=== PATIENT | male | born 1985 | race Caucasian/White ===

== ENCOUNTER 2017-08-21 11:15 | Day surgery (SDC) | payer BC ==
[~2017-08-21 11:15] MED LIST: Acetaminophen/HYDROcodone 325-5 MG Tab PO PRN; Ketorolac 30 MG/ML SDV ONE; Lactated Ringers 1,000 ML IV SCH; Lidocaine 1% 20 ML MDV ONE; Lidocaine 2% 5 ML SDV ONE; Midazolam 1 MG/ML 2 ML SDV ONE; Ondansetron 4 MG/2 ML SDV ONE; Propofol 200 MG/20 ML SDV ONE; ceFAZolin 2 GM in Premix Bag 1 BAG IV SCH; fentaNYL 250 MCG/5 ML SDV ONE
[2017-08-21] MEDS ORDERED: Propofol 200 MG/20 ML SDV ONE (12:13)
[2017-08-21] MEDS ORDERED: Lidocaine 2% 5 ML SDV ONE (12:13)
--- NOTE | 2017-08-21 12:44 | PCM.PREANE ---
Preanesthetic Assessment - Anesthesia/Transfusion/Family Hx Anesthesia History: Prior Anesthesia Without Reaction (wisdom tooth extraction) Family History of Anesthesia Reaction: No - Review of Systems General: No Symptoms Pulmonary: No Symptoms Cardiovascular: No Symptoms Gastrointestinal: No Symptoms Neurological: No Symptoms Other: Reports: None - Physical Assessment NPO Status Date: 08/20/17 NPO Status Time: 00:00 O2 Sat by Pulse Oximetry: 95 Respiratory Rate: 16 Vital Signs: Last Vital Signs Temp 36.4 C 08/21/17 11:30 Pulse 69 08/21/17 11:30 Resp 16 08/21/17 11:30 BP 144/87 H 08/21/17 11:30 Pulse Ox 95 08/21/17 11:30 Height: 1.83 m Weight: 172.365 kg ASA Class: 3 Mental Status: Alert & Oriented x3 Airway Class: Mallampati = 2 Dentition: Reports: Normal Dentition ROM/Head Extension: Full Lungs: Clear to Auscultation, Normal Respiratory Effort Cardiovascular: Regular Rate, Regular Rhythm - Allergies Allergies/Adverse Reactions: Allergies Allergy/AdvReac Type Severity Reaction Status Date / Time No Known Allergies Allergy Verified 08/19/17 11:14 - Anesthesia Plan Pre-Op Medication Ordered: None - Acknowledgements Anesthesia Type Planned: General Anesthesia Pt an Appropriate Candidate for the Planned Anesthesia: Yes Alternatives and Risks of Anesthesia Discussed w Pt/Guardian: Yes Pt/Guardian Understands and Agrees with Anesthesia Plan: Yes Additional Comments: PMH: super morbid obesity, GERD, new dx of HTN (has one day of amlodipine since dx at pre op H&P)) PreAnesthesia Questionnaire Respiratory History: Reports: Asthma, Sleep Apnea Other Respiratory History: uses CPAP Musculoskeletal History: Reports: Fracture Other Musculoskeletal History: hx of fx right wrist x3 Endocrine/Metabolic History: Reports: Obesity/BMI 30+ - Past Surgical History HEENT Surgical History: Reports: Oral Surgery Other HEENT Surgeries/Procedures: wisdom teeth removed - SUBSTANCE USE Smoking Status *Q: Current Every Day Smoker Tobacco Use Within Last Twelve Months: Smokeless Tobacco Recreational Drug Use History: No - HOME MEDS Home Medications: Home Meds Albuterol Sulfate [Proair Hfa] 1 puff INH ASDIRECTED PRN 08/19/17 [History] Montelukast Sodium [Singulair] 10 mg PO DAILY 12/04/17 [History] - CURRENT (IN HOUSE) MEDS Current Meds: Current Medications Hydrocodone Bitart/Acetaminophen ([place] 325-5 Mg) 1 - 2 tab PO Q4H PRN PRN Reason: Pain Cefazolin Sodium/Dextrose 2 gm (/ Premix) 50 mls @ 100 mls/hr IV ONCALL [facility] Lactated Ringer's (Ringers, Lactated) 1,000 mls @ 100 mls/hr IV ASDIRECTED [facility] Last Admin: 08/21/17 11:31 Dose: 100 mls/hr Discontinued Medications Fentanyl (Sublimaze) Confirm Administered Dose 250 mcg .ROUTE .STK-MED ONE Stop: 08/21/17 09:53 Ketorolac Tromethamine (Toradol) Confirm Administered Dose 30 mg .ROUTE .STK- MED ONE Stop: 08/21/17 09:54 Lidocaine (Xylocaine-Mpf 2%) Confirm Administered Dose 10 ml .ROUTE .STK-MED ONE Stop: 08/21/17 09:52 Lidocaine (Xylocaine-Mpf 2%) Confirm Administered Dose 5 ml .ROUTE .STK-MED ONE Stop: 08/21/17 12:14 Lidocaine HCl (Xylocaine 1%) Confirm Administered Dose 20 ml .ROUTE .STK-MED ONE Stop: 08/21/17 07:30 Midazolam HCl (Versed 1 Mg/Ml) Confirm Administered Dose 2 mg .ROUTE .STK-MED ONE Stop: 08/21/17 09:53 Ondansetron HCl (Zofran) Confirm Administered Dose 4 mg .ROUTE .STK-MED ONE Stop: 08/21/17 09:54 Propofol (Diprivan 20 Ml) Confirm Administered Dose 400 mg .ROUTE .STK-MED ONE Stop: 08/21/17 09:53 Propofol (Diprivan 20 Ml) Confirm Administered Dose 200 mg .ROUTE .STK-MED ONE Stop: 08/21/17 12:14
[2017-08-21] MEDS ORDERED: fentaNYL 100 MCG/2 ML SDV ONE (13:25)
[2017-08-21] MEDS ORDERED: fentaNYL 100 MCG/2 ML SDV IVPUSH PRN (13:33)
--- NOTE | 2017-08-21 13:55 | PCM.OPNOTE ---
- General Post-Op/Procedure Note Date of Surgery/Procedure: 08/21/17 Operative Procedure(s): Right knee arthroscopy with chondroplasty of med fem condyle and PLM Post-Op Diagnosis: DJD R knee. R knee lateral meniscus tear. R knee ACL tear Anesthesia Technique: General LMA Primary Surgeon: Tri Price Orange Picking Supervisor: Shaniqua Razo in mLs: 5 Condition: Good Free Text/Narrative:: tt=21min #[id number]
--- NOTE | 2017-08-21 15:31 | PCM.POSTAN ---
POST ANESTHESIA ASSESSMENT - MENTAL STATUS Mental Status: Alert, Oriented - RESPIRATORY Respiratory Status: Respiratory Rate WNL, Airway Patent, O2 Saturation Stable - CARDIOVASCULAR CV Status: Pulse Rate WNL, Blood Pressure Stable - GASTROINTESTINAL GI Status: No Symptoms - POST OP HYDRATION Hydration Status: Adequate & Stable
--- NOTE | 2017-08-21 15:32 | PCM48HPAN ---
Post Anesthesia Note - EVALUATION WITHIN 48HRS OF ANESTHETIC Vital Signs in Normal Range: Yes Patient Participated in Evaluation: Yes Respiratory Function Stable: Yes Airway Patent: Yes Cardiovascular Function Stable: Yes Hydration Status Stable: Yes Pain Control Satisfactory: Yes Nausea and Vomiting Control Satisfactory: Yes Mental Status Recovered: Yes
--- NOTE | 2017-08-21 18:47 | OR ---
SURGEON: Tri Price MD DATE OF PROCEDURE: 08/21/2017 PREOPERATIVE DIAGNOSES: 1. Right knee ACL tear. 2. Right knee lateral meniscus tear. POSTOPERATIVE DIAGNOSES: 1. Right knee ACL tear. 2. Right knee lateral meniscus tear. 3. Degenerative joint disease, right knee. PROCEDURE: Right knee arthroscopy with chondroplasty of the medial femoral condyle and partial lateral meniscectomy. CONSULTANT TEACHER: Shaniqua Razo PA-C. ANESTHESIA: General. ESTIMATED BLOOD LOSS: 5 mL. TOURNIQUET TIME: 21 minute. COMPLICATIONS: None. DVT PROPHYLAXIS: Not indicated. IMPLANTS USED: None. BRIEF HISTORY: Charlie is a 32-year-old male, who has had complaint of progressive right knee pain. He did have an MRI, which showed a tear of the ACL along with a complex tear of the lateral meniscus. Due to his lack of response to conservative treatment, I did recommend surgical intervention. The risks and goals of procedure were discussed with the patient and were documented preoperatively. He agreed to proceed. DESCRIPTION OF PROCEDURE: The patient was properly identified and brought to the operating room. He was transferred from the OR cart and placed on the operating table in supine position. General anesthesia was administered. After adequate anesthesia was obtained, a well-padded tourniquet was applied to the right lower extremity. The right lower extremity was then prepped in standard fashion using ChloraPrep solution. It was then sterilely draped. A time-out was performed to ensure correct site and procedure. Preoperative antibiotics were given. The surgical site had been marked preoperatively. An Esmarch was used to exsanguinate the right lower extremity and the tourniquet was inflated to 250 mmHg. A lateral portal arthrotomy was established. Blunt trocar and cannula were introduced into the suprapatellar pouch. Camera, inflow, and outflow were assembled. The suprapatellar pouch showed no significant synovitis. The patellofemoral joint was visualized. There was found to be evidence of grade 2 chondromalacia along the superolateral aspect of the patella. The trochlear groove showed no significant degenerative findings. The patella appeared to track centrally. I then extended down the lateral and medial gutter. No loose bodies were identified. The medial compartment was entered. A medial portal arthrotomy was established. A blunt probe was inserted. The meniscus was extensively probed. No tearing was noted. The chondral surfaces were then inspected. There was evidence of grade 2 chondromalacia diffusely along the medial tibial plateau. The medial femoral condyle was visualized. He did have a flap of cartilage along the lateral aspect of the medial femoral condyle which appeared loose. A 4.5 mm shaver was used to resect this back to a stable remnant. It was again probed and no further loosening was noted. It did not appear to be full thickness and was consistent with grade 3 chondromalacia. I then entered the notch. Both the ACL and PCL were visualized. The ACL appeared to be scarred to the PCL. It had no attachment to the lateral femoral condyle. There did not appear to be any loose fibers impinging within the joint. I then entered the lateral compartment. A large complex tear of the posterior horn of the lateral meniscus was noted. Using a combination of biters and shaver, this was resected back to a stable remnant. Only a thin rim of meniscus remained along the posterior aspect of the meniscus. The joint surfaces showed diffuse grade 3 chondromalacia along the lateral tibial plateau. Grade 1 chondromalacia was noted along the lateral femoral condyle. Instruments were then removed from the knee. The portal sites were closed with 3-0 nylon. Lidocaine 1% was injected along the portal tract. Xeroform gauze was placed over the wound and a bulky dressing was applied. The tourniquet was then deflated. He was awakened from his anesthetic and transferred back to the operating room cart. He was brought to recovery room in stable condition. All needle and sponge counts were correct. NATHAN / LIV /[id number]
== END 2017-08-21 15:35 | disposition home or self-care (01) ==
LOC: MW.SDS 11:15
PROVIDERS: ATTEND Orthopaedic Surgery
DX: S83.271A Complex tear of lateral meniscus, current injury, right knee, initial encounter (principal); S83.511A Sprain of anterior cruciate ligament of right knee, initial encounter; M17.11 Unilateral primary osteoarthritis, right knee; M22.41 Chondromalacia patellae, right knee; K21.9 Gastro-esophageal reflux disease without esophagitis; I10 Essential (primary) hypertension; G47.30 Sleep apnea, unspecified; E66.01 Morbid (severe) obesity due to excess calories; Z68.43 Body mass index [BMI] 50.0-59.9, adult; Z79.899 Other long term (current) drug therapy; Z98.890 Other specified postprocedural states; Z99.89 Dependence on other enabling machines and devices
CPT/HCPCS: 29881; A9270; J0690; J1885; J2250; J2405; J3010; J7120; 01400; 88304; J2704

== ENCOUNTER 2018-11-17 21:13 | Emergency (ER) | payer BC ==
--- NOTE | 2018-11-17 21:19 | EDM.PDOC ---
ED HPI GENERAL MEDICAL PROBLEM - General Stated Complaint: PT HAS BODY PAIN ON LT SIDE Time Seen by Provider: 11/17/18 21:19 Source of Information: Reports: Patient - History of Present Illness INITIAL COMMENTS - FREE TEXT/NARRATIVE: HISTORY AND PHYSICAL: History of present illness: [Patient presents with a complaint of chest pain for 2 weeks does also complain of some left shoulder pain both chest and shoulder pain or worsened by movement of the left arm I can reproduce symptoms with palpation over the insertion of the pectoralis major consistent with muscle spasm no shortness of breath or diaphoresis no radiation to neck or jaw Nausea vomiting chills sweats no shortness breath headache dizziness palpitation no bowel or urine symptoms ] Review of systems: As per history of present illness and below otherwise all systems reviewed and negative. Past medical history: As per history of present illness and as reviewed below otherwise noncontributory. Surgical history: As per history of present illness and as reviewed below otherwise noncontributory. Social history: No reported history of drug or alcohol abuse. Family history: As per history of present illness and as reviewed below otherwise noncontributory. Physical exam: HEENT: Atraumatic, normocephalic, pupils reactive, negative for conjunctival pallor or scleral icterus, mucous membranes moist, throat clear, neck supple, nontender, trachea midline. Lungs: Clear to auscultation, breath sounds equal bilaterally, chest nontender. Heart: S1S2, regular, negative for clicks, rubs, or JVD. Abdomen: Soft, nondistended, nontender. Negative for masses or hepatosplenomegaly. Negative for costovertebral tenderness. Pelvis: Stable nontender. Genitourinary: Deferred. Rectal: Deferred. Extremities: Atraumatic, negative for cords or calf pain. Neurovascular unremarkable. Neuro: Awake, alert, oriented. Cranial nerves II through XII unremarkable. Cerebellum unremarkable. Motor and sensory unremarkable throughout. Exam nonfocal. Diagnostics: [] Therapeutics: [Normal saline Vasotec 1.25 mg IV-discontinued his blood pressure improved Rest ice ibuprofen ] Impression: [Muscle spasm, left pectoral major insertion defintive disposition and diagnosis as appropriate pending reevaluation and review of above. chest Pain Score (Numeric/FACES): 2 - Related Data Allergies Allergy/AdvReac Type Severity Reaction Status Date / Time No Known Allergies Allergy Verified 08/19/17 11:14 Home Meds: Home Meds Albuterol Sulfate [Proair Hfa] 1 puff INH ASDIRECTED PRN 08/19/17 [History] Montelukast Sodium [Singulair] 10 mg PO DAILY 08/19/17 [History] Acetaminophen/HYDROcodone [[place] 325-5 MG] 1 - 2 tab PO Q4H PRN #80 tablet 08/21 [Rx] Past Medical History Respiratory History: Reports: Asthma, Sleep Apnea Other Respiratory History: uses CPAP Musculoskeletal History: Reports: Fracture Other Musculoskeletal History: hx of fx right wrist x3 Endocrine/Metabolic History: Reports: Obesity/BMI 30+ - Past Surgical History HEENT Surgical History: Reports: Oral Surgery Other HEENT Surgeries/Procedures: wisdom teeth removed ED ROS GENERAL - Review of Systems Review Of Systems: See Below ED EXAM, GENERAL - Physical Exam Exam: See Below Course - Vital Signs Last Recorded V/S: Last Vital Signs Temp 98.1 F 11/17/18 21:35 Pulse 69 11/17/18 22:22 Resp 20 11/17/18 22:22 BP 146/77 H 11/17/18 22:22 Pulse Ox 99 11/17/18 22:22 - Orders/Labs/Meds Orders: Active Orders 24 hr Category Date Time Status EKG Documentation Completion [RC] STAT Care 11/17/18 21:21 Active CULTURE BLOOD [BC] Stat Lab 11/17/18 21:52 Results CULTURE BLOOD [BC] Stat Lab 11/17/18 22:20 Received Blood Culture x2 Reflex Set [OM.PC] Stat Oth 11/17/18 21:20 Ordered Labs: Laboratory Tests 11/17/18 11/17/18 11/17/18 Range/Units 22:20 22:20 22:20 WBC 6.11 (4.0-11.0) K/uL RBC 5.27 (4.50-5.90) M/uL Hgb 15.8 (13.0-17.0) g/dL Hct 46.2 (38.0-50.0) % MCV 87.7 (80.0-98.0) fL MCH 30.0 (27.0-32.0) pg MCHC 34.2 (31.0-37.0) g/dL RDW Std Deviation 43.4 (28.0-62.0) fl RDW Coeff of [place] 14 (11.0-15.0) % Plt Count 237 (150-400) K/uL MPV 10.40 (7.40-12.00) fL Neut % (Auto) 53.9 (48.0-80.0) % Lymph % (Auto) 33.9 (16.0-40.0) % [place] % (Auto) 9.5 (0.0-15.0) % Eos % (Auto) 2.0 (0.0-7.0) % Baso % (Auto) 0.7 (0.0-1.5) % Neut # (Auto) 3.3 (1.4-5.7) K/uL Lymph # (Auto) 2.1 (0.6-2.4) K/uL [place] # (Auto) 0.6 (0.0-0.8) K/uL Eos # (Auto) 0.1 (0.0-0.7) K/uL Baso # (Auto) 0.0 (0.0-0.1) K/uL Nucleated RBC % 0.0 /100WBC Nucleated RBCs # 0 K/uL INR 1.02 D-Dimer, Quantitative (0.0-0.50) mg/L FEU Sodium 140 (136-148) mmol/L Potassium 3.8 (3.5-5.1) mmol/L Chloride 104 (98-107) mmol/L Carbon Dioxide 28.1 (21.0-32.0) mmol/L BUN 20 H (7.0-18.0) mg/dL Creatinine 1.1 (0.8-1.3) mg/dL Est Cr Clr Drug Dosing TNP Estimated GFR (MDRD) > 60.0 ml/min Glucose 93 (74-106) mg/dL Calcium 9.4 (8.5-10.1) mg/dL Total Bilirubin 0.2 (0.2-1.0) mg/dL AST 26 (15-37) IU/L ALT 52 (14-63) IU/L Alkaline Phosphatase 70 (46-116) U/L Troponin I < 0.050 (0.000-0.056) ng/mL Total Protein 7.6 (6.4-8.2) g/dL Albumin 3.9 (3.4-5.0) g/dL Globulin 3.7 (2.6-4.0) g/dL Albumin/Globulin Ratio 1.1 (0.9-1.6) Lipase 114 (73-393) U/L Urine Color Urine Appearance Urine pH (5.0-8.0) Ur Specific [place] (1.001-1.035) Urine Protein (NEGATIVE) mg/dL Urine Glucose (UA) (NEGATIVE) mg/dL Urine Ketones (NEGATIVE) mg/dL Urine Occult Blood (NEGATIVE) Urine Nitrite (NEGATIVE) Urine Bilirubin (NEGATIVE) Urine Urobilinogen (<2.0) EU/dL Ur Leukocyte Esterase (NEGATIVE) 11/17/18 11/17/18 Range/Units 22:20 22:53 WBC (4.0-11.0) K/uL RBC (4.50-5.90) M/uL Hgb (13.0-17.0) g/dL Hct (38.0-50.0) % MCV (80.0-98.0) fL MCH (27.0-32.0) pg MCHC (31.0-37.0) g/dL RDW Std Deviation (28.0-62.0) fl RDW Coeff of [place] (11.0-15.0) % Plt Count (150-400) K/uL MPV (7.40-12.00) fL Neut % (Auto) (48.0-80.0) % Lymph % (Auto) (16.0-40.0) % [place] % (Auto) (0.0-15.0) % Eos % (Auto) (0.0-7.0) % Baso % (Auto) (0.0-1.5) % Neut # (Auto) (1.4-5.7) K/uL Lymph # (Auto) (0.6-2.4) K/uL [place] # (Auto) (0.0-0.8) K/uL Eos # (Auto) (0.0-0.7) K/uL Baso # (Auto) (0.0-0.1) K/uL Nucleated RBC % /100WBC Nucleated RBCs # K/uL INR D-Dimer, Quantitative 0.32 (0.0-0.50) mg/L FEU Sodium (136-148) mmol/L Potassium (3.5-5.1) mmol/L Chloride (98-107) mmol/L Carbon Dioxide (21.0-32.0) mmol/L BUN (7.0-18.0) mg/dL Creatinine (0.8-1.3) mg/dL Est Cr Clr Drug Dosing Estimated GFR (MDRD) ml/min Glucose (74-106) mg/dL Calcium (8.5-10.1) mg/dL Total Bilirubin (0.2-1.0) mg/dL AST (15-37) IU/L ALT (14-63) IU/L Alkaline Phosphatase (46-116) U/L Troponin I (0.000-0.056) ng/mL Total Protein (6.4-8.2) g/dL Albumin (3.4-5.0) g/dL Globulin (2.6-4.0) g/dL Albumin/Globulin Ratio (0.9-1.6) Lipase (73-393) U/L Urine Color YELLOW Urine Appearance CLOUDY Urine pH 7.0 (5.0-8.0) Ur Specific [place] 1.010 (1.001-1.035) Urine Protein NEGATIVE (NEGATIVE) mg/dL Urine Glucose (UA) NEGATIVE (NEGATIVE) mg/dL Urine Ketones NEGATIVE (NEGATIVE) mg/dL Urine Occult Blood NEGATIVE (NEGATIVE) Urine Nitrite NEGATIVE (NEGATIVE) Urine Bilirubin NEGATIVE (NEGATIVE) Urine Urobilinogen 1.0 (<2.0) EU/dL Ur Leukocyte Esterase NEGATIVE (NEGATIVE) Meds: Medications Discontinued Medications Generic Name Dose Route Start Last Admin Trade Name [place] PRN Reason Stop Dose Admin Enalaprilat 1.25 mg 11/17/18 22:00 11/17/18 22:51 Vasotec Iv IVPUSH 11/17/18 22:01 Not Given ONETIME ONE Sodium Chloride 1,000 mls @ 999 mls/hr 11/17/18 21:22 11/17/18 21:58 Normal Saline IV 11/17/18 22:22 999 mls/hr STAT ONE Administration Pantoprazole Sodium 80 mg 11/17/18 21:22 11/17/18 21:58 Protonix Iv IVPUSH 11/17/18 21:23 80 mg .BOLUS ONE Administration Departure - Departure Time of Disposition: 23:22 Disposition: Home, Self-Care 01 Condition: Good Clinical Impression: Muscle spasm - Discharge Information Referrals: Charlie Bush MD [Primary Care Provider] - Additional Instructions: The following information is given to patients seen in the emergency department who are being discharged to home. This information is to outline your options for follow-up care. We provide all patients seen in our emergency department with a follow-up referral. The need for follow-up, as well as the timing and circumstances, are variable depending upon the specifics of your emergency department visit. If you don't have a primary care physician on staff, we will provide you with a referral. We always advise you to contact your personal physician following an emergency department visit to inform them of the circumstance of the visit and for follow-up with them and/or the need for any referrals to a consulting specialist. The emergency department will also refer you to a specialist when appropriate. This referral assures that you have the opportunity for follow-up care with a specialist. All of these measure are taken in an effort to provide you with optimal care, which includes your follow-up. Under all circumstances we always encourage you to contact your private physician who remains a resource for coordinating your care. When calling for follow-up care, please make the office aware that this follow-up is from your recent emergency room visit. If for any reason you are refused follow-up, please contact the [facility] emergency department at and asked to speak to the emergency department charge nurse. - My Orders Last 24 Hours: My Active Orders 11/17/18 21:20 Blood Culture x2 Reflex Set [OM.PC] Stat 11/17/18 21:21 EKG Documentation Completion [RC] STAT 11/17/18 21:52 CULTURE BLOOD [BC] Stat 11/17/18 22:20 CULTURE BLOOD [BC] Stat - Assessment/Plan Last 24 Hours: My Active Orders 11/17/18 21:20 Blood Culture x2 Reflex Set [OM.PC] Stat 11/17/18 21:21 EKG Documentation Completion [RC] STAT 11/17/18 21:52 CULTURE BLOOD [BC] Stat 11/17/18 22:20 CULTURE BLOOD [BC] Stat
[2018-11-17] MEDS ORDERED: Pantoprazole 40 MG Vial IVPUSH ONE (21:22)
[2018-11-17] MEDS ORDERED: Sodium Chloride 0.9% 1,000 ML IV ONE (21:22)
[2018-11-17] MEDS ORDERED: Enalaprilat 1.25 MG/ML SDV IVPUSH ONE (22:00)
--- NOTE | 2018-11-17 22:01 | CR ---
Indication: Left-sided chest pain Technique: Chest 1 view Comparison: None Findings/Impression: Prominent cardiac size. Normal pulmonary vasculature. No focal infiltrate, effusion, or pneumothorax. Osseous structures intact. Dictated by Vidhya Sanders MD @ Nov 17 2018 10:00PM Signed by Dr. Vidhya Sanders @ Nov 17 2018 10:00PM
[2018-11-17 23:12] LABS: CHLORIDE,CL 104 mmol/L (98-107); SODIUM,NA 140 mmol/L (136-148)
== END 2018-11-17 23:36 | disposition home or self-care (01) ==
LOC: MW.ED 21:13
DX: M62.838 Other muscle spasm (principal)
CPT/HCPCS: 36415; 71045; 80053; 81003; 83690; 84484; 85025; 85379; 85610; 87040; 93005; 96361; 96374; 99285; C9113; J7040; 99283

== ENCOUNTER 2019-05-25 12:35 | Observation (INO) | payer BC ==
--- NOTE | 2019-05-25 12:46 | EDM.PDOC ---
ED HPI GENERAL MEDICAL PROBLEM - General Chief Complaint: Lower Extremity Injury/Pain Stated Complaint: RIGHT SWOLLEN LEG Time Seen by Provider: 05/25/19 12:46 Source of Information: Reports: Patient History Limitations: Reports: No Limitations - History of Present Illness INITIAL COMMENTS - FREE TEXT/NARRATIVE: HISTORY AND PHYSICAL: History of present illness: Patient is a 34-year-old male who presents to the emergency room with complaints of right lower extremity pain, swelling and redness. He states last week he had cold like symptoms and had been laying in bed for several days. During that time he had fever, chills and generalized body aches. A few days ago he had noticed a small sore to his right iglesias which she states has "been there a long time". He noticed some redness and swelling around the site. He did use a tele-doc service who prescribed him oral antibiotics. He states he has been taking these oral antibiotics for 2 days but the right lower extremity has become more painful, red and tender with palpation. He states with rest and not being physically active the pain is better. Patient denies any headache, change in vision, syncope or near syncope. Denies any chest pain, back pain, shortness of breath or cough. Denies any GI or symptoms. Patient has been eating and drinking appropriately. Denies any previous history of diabetes. Review of systems: As per history of present illness and below otherwise all systems reviewed and negative. Past medical history: As per history of present illness and as reviewed below otherwise noncontributory. Surgical history: As per history of present illness and as reviewed below otherwise noncontributory. Social history: See social history for further information Family history: As per history of present illness and as reviewed below otherwise noncontributory. Physical exam: General: Well-developed and well-nourished 34-year-old male. Alert and oriented. Nontoxic appearing and in no acute distress. HEENT: Atraumatic, normocephalic, pupils equal and reactive bilaterally, negative for conjunctival pallor or scleral icterus, mucous membranes moist, trachea midline. No drooling or trismus noted. No meningeal signs. No hot potato voice noted. Lungs: Clear to auscultation, breath sounds equal bilaterally, chest nontender. Heart: S1S2, regular rate and rhythm without overt murmur Abdomen: Soft, obese, nontender. Negative for masses or hepatosplenomegaly. Negative for costovertebral tenderness. Pelvis: Stable nontender. Skin: Diffuse erythema noted to the right anterior lower extremity. warm to touch.He does have a healing scab to the mid right tib-fib. Otherwise skin is intact, warm, dry. No lesions or rashes noted. Extremities: Atraumatic, moves all extremities per self without difficulty or deficits, see skin for details. Patient is ambulatory without difficulty or deficits. Denies any numbness or tingling to the distal extremities. Palpable pedal pulse. Patient does have large body habitus with generalized edema to bilateral lower extremities. Capillary refill less than 3 seconds. Neurovascular unremarkable. Neuro: Awake, alert, oriented. Cranial nerves II through XII unremarkable. Cerebellum unremarkable. Motor and sensory unremarkable throughout. Exam nonfocal. Notes: Doppler was used to confirm pedal and pretibial pulses. Calf Measurements: 21. 75 inches on (R) and 20.5 inches on (L) Patient failed outpatient therapy. Lab work is unremarkable. vtc technician and states that the ultrasound is negative for DVT. Dr. Vazquez was consult did on this case and he is agreeable to keeping this patient for observation admission. Vancomycin was ordered. Patient was made aware and agreeable to plan of care. Diagnostics: CBC, CMP, INR, blood cultures, x-ray right lower extremity, ultrasound Therapeutics: Vancomycin Impression: Cellulitis Plan: Observation admission per Dr. Vazquez. Definitive disposition and diagnosis as appropriate pending reevaluation and review of above. Right Lower Leg Pain Score (Numeric/FACES): 3 - Related Data Allergies Allergy/AdvReac Type Severity Reaction Status Date / Time grass pollen Allergy Mild Sneezing Verified 05/25/19 15:15 Home Meds: Home Meds Albuterol Sulfate [Proair Hfa] 1 puff INH ASDIRECTED PRN 08/19/17 [History] Montelukast Sodium [Singulair] 10 mg PO BEDTIME 08/19/17 [History] Losartan [Cozaar] 25 mg PO BEDTIME 05/25/19 [History] Past Medical History Cardiovascular History: Reports: Hypertension Respiratory History: Reports: Asthma, Sleep Apnea Other Respiratory History: uses CPAP Gastrointestinal History: Reports: None Genitourinary History: Reports: None Musculoskeletal History: Reports: Fracture Other Musculoskeletal History: hx of fx right wrist x3 Psychiatric History: Reports: None Endocrine/Metabolic History: Reports: Obesity/BMI 30+ - Infectious Disease History Infectious Disease History: Reports: None - Past Surgical History HEENT Surgical History: Reports: Oral Surgery Other HEENT Surgeries/Procedures: wisdom teeth removed Social & Family History - Family History Family Medical History: Noncontributory Review of Systems - Review of Systems Review Of Systems: ROS reveals no pertinent complaints other than HPI. ED EXAM, GENERAL - Physical Exam Exam: See Below (See dictation) Course - Vital Signs Last Recorded V/S: Last Vital Signs Temp 97.6 F 05/25/19 15:04 Pulse 83 05/25/19 15:04 Resp 16 05/25/19 15:04 BP 157/86 H 05/25/19 15:04 Pulse Ox 99 05/25/19 15:04 - Orders/Labs/Meds Orders: Active Orders 24 hr Category Date Time Status CULTURE BLOOD [BC] Stat Lab 05/25/19 13:10 Results CULTURE BLOOD [BC] Stat Lab 05/25/19 13:23 Results Blood Culture x2 Reflex Set [OM.PC] Stat Oth 05/25/19 12:53 Ordered Medication Orders Acetaminophen (Tylenol) 650 mg PO Q4H PRN PRN Reason: Pain (Mild 1-3)/fever Albuterol (Proventil Neb Soln) 2.5 mg NEB Q2H PRN PRN Reason: Shortness Of Breath/wheezing Albuterol (Proventil Hfa) 0 gm INH Q4H PRN PRN Reason: Wheezing Enoxaparin Sodium (Lovenox) 40 mg SUBCUT Q24H IZA Last Admin: 05/25/19 15:52 Dose: 40 mg Linezolid 600 mg/ Premix 300 mls @ 300 mls/hr IV Q12H IZA Last Admin: 05/25/19 15:53 Dose: 300 mls/hr Losartan Potassium (Cozaar) 25 mg PO BEDTIME IZA Montelukast Sodium (Singulair) 10 mg PO BEDTIME IZA Ondansetron HCl (Zofran) 4 mg IVPUSH Q4H PRN PRN Reason: Nausea Oxycodone HCl (Oxycodone) 5 mg PO Q4H PRN PRN Reason: Pain (moderate 4-6) Sodium Chloride (Saline Flush) 2.5 ml FLUSH ASDIRECTED PRN PRN Reason: Keep Vein Open Labs: Laboratory Tests 05/25/19 05/25/19 Range/Units 13:10 13:10 WBC 5.42 (4.0-11.0) K/uL RBC 5.24 (4.50-5.90) M/uL Hgb 15.2 (13.0-17.0) g/dL Hct 46.0 (38.0-50.0) % MCV 87.8 (80.0-98.0) fL MCH 29.0 (27.0-32.0) pg MCHC 33.0 (31.0-37.0) g/dL RDW Std Deviation 42.8 (28.0-62.0) fl RDW Coeff of Edenilson 13 (11.0-15.0) % Plt Count 219 (150-400) K/uL MPV 11.30 (7.40-12.00) fL Neut % (Auto) 58.8 (48.0-80.0) % Lymph % (Auto) 29.0 (16.0-40.0) % Spencer % (Auto) 9.8 (0.0-15.0) % Eos % (Auto) 1.5 (0.0-7.0) % Baso % (Auto) 0.9 (0.0-1.5) % Neut # (Auto) 3.2 (1.4-5.7) K/uL Lymph # (Auto) 1.6 (0.6-2.4) K/uL Spencer # (Auto) 0.5 (0.0-0.8) K/uL Eos # (Auto) 0.1 (0.0-0.7) K/uL Baso # (Auto) 0.1 (0.0-0.1) K/uL Nucleated RBC % 0.0 /100WBC Nucleated RBCs # 0 K/uL Sodium 139 (136-148) mmol/L Potassium 4.1 (3.5-5.1) mmol/L Chloride 103 (98-107) mmol/L Carbon Dioxide 22.1 (21.0-32.0) mmol/L BUN 14 (7.0-18.0) mg/dL Creatinine 0.9 (0.8-1.3) mg/dL Est Cr Clr Drug Dosing 124.54 mL/min Estimated GFR (MDRD) > 60.0 ml/min Glucose 87 (74-106) mg/dL Calcium 10.2 H (8.5-10.1) mg/dL Total Bilirubin 0.4 (0.2-1.0) mg/dL AST 20 (15-37) IU/L ALT 53 (14-63) IU/L Alkaline Phosphatase 65 (46-116) U/L Total Protein 7.0 (6.4-8.2) g/dL Albumin 3.3 L (3.4-5.0) g/dL Globulin 3.7 (2.6-4.0) g/dL Albumin/Globulin Ratio 0.9 (0.9-1.6) Meds: Medications Generic Name Dose Route Start Last Admin Trade Name Freq PRN Reason Stop Dose Admin Acetaminophen 650 mg 05/25/19 14:54 Tylenol PO Q4H PRN Pain (Mild 1-3)/fever Albuterol 2.5 mg 05/25/19 14:54 Proventil Neb Soln NEB Q2H PRN Shortness Of Breath/wheezing Albuterol 0 gm 05/25/19 15:01 Proventil Hfa INH Q4H PRN Wheezing Enoxaparin Sodium 40 mg 05/25/19 15:00 05/25/19 15:52 Lovenox SUBCUT 40 mg Q24H IZA Administration Linezolid 600 mg/ Premix 300 mls @ 300 mls/hr 05/25/19 15:00 05/25/19 15:53 IV 300 mls/hr Q12H IZA Administration Losartan Potassium 25 mg 05/25/19 21:00 Cozaar PO BEDTIME IZA Montelukast Sodium 10 mg 05/25/19 21:00 Singulair PO BEDTIME IZA Ondansetron HCl 4 mg 05/25/19 14:54 Zofran IVPUSH Q4H PRN Nausea Oxycodone HCl 5 mg 05/25/19 14:54 Oxycodone PO Q4H PRN Pain (moderate 4-6) Sodium Chloride 2.5 ml 05/25/19 14:54 Saline Flush FLUSH ASDIRECTED PRN Keep Vein Open Departure - Departure Time of Disposition: 14:06 Disposition: Refer to Observation Clinical Impression: Cellulitis Qualifiers: Site of cellulitis: extremity Site of cellulitis of extremity: lower extremity Laterality: right Qualified Code(s): L03.115 - Cellulitis of right lower limb - Discharge Information - My Orders Last 24 Hours: My Active Orders 05/25/19 12:53 Blood Culture x2 Reflex Set [OM.PC] Stat 05/25/19 13:10 CULTURE BLOOD [BC] Stat 05/25/19 13:23 CULTURE BLOOD [BC] Stat - Assessment/Plan Last 24 Hours: My Active Orders 05/25/19 12:53 Blood Culture x2 Reflex Set [OM.PC] Stat 05/25/19 13:10 CULTURE BLOOD [BC] Stat 05/25/19 13:23 CULTURE BLOOD [BC] Stat
--- NOTE | 2019-05-25 14:25 | CR ---
Right tibia and fibula: AP and lateral views of the right tibia and fibula were obtained. Increased density is noted within the subcutaneous fat most likely representing subcutaneous edema. Small spur is noted at the attachment of the Achilles tendon to the calcaneus. Slight joint space narrowing is seen within the lateral compartment of the knee with minimal lateral osteophytes. No acute fracture or other bony abnormality is seen. Impression: Findings as described above. Nothing acute is appreciated. Diagnostic code #2 MTDD
--- NOTE | 2019-05-25 14:26 | US ---
Right lower extremity deep venous ultrasound: Duplex and color Doppler evaluation was obtained of the right common femoral, superficial femoral, popliteal, posterior tibial vein. Findings: Subcutaneous edema is noted within the calf which obscures the posterior tibial vein. Other veins show normal phasic flow, augmentation and compression. Impression: 1. Posterior tibial vein is not seen due to subcutaneous edema within the calf. 2. No evidence of deep venous thrombosis is seen within the right lower extremity. Diagnostic code #2 MTDD
--- NOTE | 2019-05-25 14:49 | PCM.HP.2 ---
<Mary Lou Ward M - Last Filed: 05/25/19 15:18> H&P History of Present Illness - General Date of Service: 05/25/19 Admit Problem/Dx: Admission Diagnosis/Problem Admission Diagnosis/Problem Cellulitis of R lower extremity Source of Information: Patient History Limitations: Reports: No Limitations - History of Present Illness Initial Comments - Free Text/Narative: This 34 year old male with pmh od obesity, HTN, EMILEE and asthma presented to the ED today with worsening right lower leg redness, pain and swelling. He reports on Saturday he noticed very small amount of redness to his R iglesias. He reports he has had an abrasion there for months, that is itchy and it bleeds if she scratches it. Denies trauma or spider bite. No purulent drainage has ever come out of abrasion. He then reports being feverish, with body aches and overall not feeling well over the weekend. He saw a Dr via Telemedicine through his insurance and was prescribed Bactrim. He has taken this x 3 doses and the redness continues to worsen. he denies ever since starting Bactrim and generally is feeling a little better, but leg continues to worsen. He reports hx of HTN and asthma. No DM or known CAD. He reports chewing tobacco, rare alcohol use and no recreational drug use. In the ED CBC WNL, no leukocytosis noted. Doppler of R leg negative for DVT. Tib /fib exray shows no signs of gas, noted subcutaneous edema to lower extremity. VS stable in ED, mild hypertension noted. BC obtained and are pending. He will be admitted observation for RLE cellulitis. Right Lower Leg Pain Score (Numeric/FACES): 3 - Related Data Allergies/Adverse Reactions: Allergies Allergy/AdvReac Type Severity Reaction Status Date / Time grass pollen Allergy Mild Sneezing Verified 05/25/19 15:15 Home Medications: Home Meds Albuterol Sulfate [Proair Hfa] 1 puff INH ASDIRECTED PRN 08/19/17 [History] Montelukast Sodium [Singulair] 10 mg PO BEDTIME 08/19/17 [History] Losartan [Cozaar] 25 mg PO BEDTIME 05/25/19 [History] Past Medical History Cardiovascular History: Reports: Hypertension. Denies: Afib, Blood Clots/VTE/ DVT, CAD Respiratory History: Reports: Asthma, Sleep Apnea Other Respiratory History: uses CPAP Gastrointestinal History: Reports: None Genitourinary History: Reports: None Musculoskeletal History: Reports: Fracture Other Musculoskeletal History: hx of fx right wrist x3 Psychiatric History: Reports: None Endocrine/Metabolic History: Reports: Obesity/BMI 30+. Denies: Diabetes, Type II, Hypothyroidism Dermatologic History: Reports: None. Denies: Cellulitis - Infectious Disease History Infectious Disease History: Reports: None - Past Surgical History HEENT Surgical History: Reports: Oral Surgery Other HEENT Surgeries/Procedures: wisdom teeth removed Social & Family History - Family History Family Medical History: Noncontributory - Tobacco Use Smoking Status *Q: Never Smoker Tobacco Use Within Last Twelve Months: Smokeless Tobacco Packs/Tins Daily: 1 Smoking Cessation Information Provided To Patient: Yes Second Hand Smoke Exposure: No - Caffeine Use Caffeine Use: Reports: Coffee - Alcohol Use Alcohol Use History: No Alcohol Use Frequency: Rarely - Recreational Drug Use Recreational Drug Use: No H&P Review of Systems - Review of Systems: Review Of Systems: See Below General: Reports: Fever, Chills, Malaise, Decreased Appetite HEENT: Reports: No Symptoms. Denies: Headaches, Sinus Congestion, Sore Throat Pulmonary: Reports: No Symptoms. Denies: Shortness of Breath, Cough, Sputum Cardiovascular: Reports: Edema (RLE). Denies: Chest Pain, Dyspnea on Exertion Gastrointestinal: Reports: No Symptoms. Denies: Abdominal Pain, Black Stool, Bloody Stool, Nausea, Vomiting Genitourinary: Reports: No Symptoms. Denies: Dysuria, Frequency, Retention, Flank Pain Musculoskeletal: Reports: Leg Pain (R lower extremity). Denies: Neck Pain Skin: Reports: Erythema (RLE) Psychiatric: Reports: No Symptoms Neurological: Reports: No Symptoms Hematologic/Lymphatic: Reports: No Symptoms Immunologic: Reports: No Symptoms Exam - Exam Exam: See Below - Vital Signs Vital Signs: Last Vital Signs Temp 97.1 F 05/25/19 12:45 Pulse 81 05/25/19 14:14 Resp 18 05/25/19 14:14 BP 165/91 H 05/25/19 14:14 Pulse Ox 96 05/25/19 14:14 Weight: 176.901 kg - Exam General: Alert, Oriented, Cooperative HEENT: Conjunctiva Clear, Mucosa Moist & [place], Posterior Pharynx Clear Lungs: Clear to Auscultation, Normal Respiratory Effort Cardiovascular: Regular Rate, Regular Rhythm, Normal S1, Normal S2. No: Systolic Murmur GI/Abdominal Exam: Normal Bowel Sounds, Soft, Non-Tender, Other (obese abdomen) Back Exam: Normal Inspection, Full Range of Motion Extremities: Normal Inspection, Normal Range of Motion, Non-Tender, Normal Capillary Refill, Pedal Edema (+2 pitting to RLE) Peripheral Pulses: 2+: Posterior Tibial (L), Posterior Tibial (R), Dorsalis Pedis (L), Dorsalis Pedis (R) Skin: Wound (small 0.5 in round abrasion, healing wound with scab. No drainage or fluctuance. Erythema, warm and tenderness noted circumferentially to RLE, sparing knee and ankle and foot. Able to move all joints without pain. ) Neuro Extensive - Mental Status: Alert, Oriented x3, Normal Mood/Affect Neuro Extensive - Motor, Sensory, Reflexes: CN II-XII Intact, Normal Gait Psychiatric: Alert, Normal Affect, Normal Mood - Patient Data Lab Results Last 24 hrs: Laboratory Results - last 24 hr 05/25/19 Range/Units 13:10 WBC 5.42 (4.0-11.0) K/uL RBC 5.24 (4.50-5.90) M/uL Hgb 15.2 (13.0-17.0) g/dL Hct 46.0 (38.0-50.0) % MCV 87.8 (80.0-98.0) fL MCH 29.0 (27.0-32.0) pg MCHC 33.0 (31.0-37.0) g/dL RDW Std Deviation 42.8 (28.0-62.0) fl RDW Coeff of Edenilson 13 (11.0-15.0) % Plt Count 219 (150-400) K/uL MPV 11.30 (7.40-12.00) fL Neut % (Auto) 58.8 (48.0-80.0) % Lymph % (Auto) 29.0 (16.0-40.0) % [place] % (Auto) 9.8 (0.0-15.0) % Eos % (Auto) 1.5 (0.0-7.0) % Baso % (Auto) 0.9 (0.0-1.5) % Neut # (Auto) 3.2 (1.4-5.7) K/uL Lymph # (Auto) 1.6 (0.6-2.4) K/uL [place] # (Auto) 0.5 (0.0-0.8) K/uL Eos # (Auto) 0.1 (0.0-0.7) K/uL Baso # (Auto) 0.1 (0.0-0.1) K/uL Nucleated RBC % 0.0 /100WBC Nucleated RBCs # 0 K/uL Result Diagrams: 05/25/19 13:10 05/25/19 13:10 Werner Results Last 24 hrs: Microbiology 05/25/19 13:23 Anaerobic Blood Culture - Final Blood - Venous - Lab Draw 05/25/19 13:10 Anaerobic Blood Culture - Final Blood - Venous *Q Meaningful Use (ADM) - VTE Risk Assess *Q Each Risk Factor Represents 1 Point: Swollen Legs, Current, Obesity ( BMI > 25 kg/m2) Total Score 1 Point Risk Factors: 2 Each Risk Factor Represents 2 Points: None Total Score 2 Point Risk Factors: 0 Each Risk Factor Represents 3 Points: None Total Score 3 Point Risk Factors: 0 Each Risk Factor Represents 5 Points: None Total Score 5 Point Risk Factors: 0 Venous Thromboembolism Risk Factor Score *Q: 2 - Problem List (1) Cellulitis SNOMED Code(s): 492476694 ICD Code: L03.90 - CELLULITIS, UNSPECIFIED Status: Acute Current Visit: Yes Qualifiers: Site of cellulitis: extremity Site of cellulitis of extremity: lower extremity Laterality: right Qualified Code(s): L03.115 - Cellulitis of right lower limb (2) HTN (hypertension) SNOMED Code(s): 61045643 ICD Code: I10 - ESSENTIAL (PRIMARY) HYPERTENSION Status: Chronic Current Visit: Yes Qualifiers: Hypertension type: essential hypertension Qualified Code(s): I10 - Essential (primary) hypertension (3) Obesity SNOMED Code(s): 214584439, 545759377 ICD Code: E66.9 - OBESITY, UNSPECIFIED Status: Chronic Current Visit: Yes (4) EMILEE on CPAP SNOMED Code(s): 35320883 ICD Code: G47.33 - OBSTRUCTIVE SLEEP APNEA (ADULT) (PEDIATRIC); Z99.89 - DEPENDENCE ON OTHER ENABLING MACHINES AND DEVICES Status: Chronic Current Visit: Yes (5) Tobacco chew use SNOMED Code(s): 39339994 ICD Code: Z72.0 - TOBACCO USE Status: Chronic Current Visit: Yes Problem List Initiated/Reviewed/Updated: Yes Orders Last 24hrs: Active Orders 24 hr Category Date Time Status Admission Status [Patient Status] [ADT] Stat ADT 05/25/19 14:07 Active COMPREHENSIVE METABOLIC PN,CMP [CHEM] Stat Lab 05/25/19 13:10 Received CULTURE BLOOD [BC] Stat Lab 05/25/19 13:10 Results CULTURE BLOOD [BC] Stat Lab 05/25/19 13:23 Results INR,PT,PROTHROMBIN TIME [COAG] Stat Lab 05/25/19 14:26 Received Blood Culture x2 Reflex Set [OM.PC] Stat Oth 05/25/19 12:53 Ordered Assessment/Plan Comment:: This 34 year old male admitted with RLE cellulitis 1. RLE Cellulitis: BC obtained. Will treat with Linezolid 600 mg IV Q12h. Vancomycin may be difficult to dose due to obesity. Elevate Leg as much as possible. Monitor. Oxycodone for pain PRN. Tylenol available as well. 2. HTN: Slightly elevated on arrival. Will monitor, continue Losartan. 3. EMILEE: Continue CPAP, will bring from home. VTE prophylaxis: Lovenox Dispo: 2 days pending improvement. - Mortality Measure Prognosis:: Good <Jorge Vazquez - Last Filed: 05/25/19 16:10> H&P History of Present Illness - General Admit Problem/Dx: Admission Diagnosis/Problem Admission Diagnosis/Problem Cellulitis I have seen and examined the patient independently of Mary Lou Ward CNP. I have reviewed and agree with the plan of care as outlined for this patient by her. I have discussed the case with her. Please see orders. Exam - Vital Signs Vital Signs: Last Vital Signs Temp 36.4 C 05/25/19 15:04 Pulse 83 05/25/19 15:04 Resp 16 05/25/19 15:04 BP 157/86 H 05/25/19 15:04 Pulse Ox 99 05/25/19 15:04 - Patient Data Lab Results Last 24 hrs: Laboratory Results - last 24 hr 09/09/19 09/09/19 09/09/19 Range/Units 13:10 13:10 14:26 WBC 5.42 (4.0-11.0) K/uL RBC 5.24 (4.50-5.90) M/uL Hgb 15.2 (13.0-17.0) g/dL Hct 46.0 (38.0-50.0) % MCV 87.8 (80.0-98.0) fL MCH 29.0 (27.0-32.0) pg MCHC 33.0 (31.0-37.0) g/dL RDW Std Deviation 42.8 (28.0-62.0) fl RDW Coeff of [place]ilson 13 (11.0-15.0) % Plt Count 219 (150-400) K/uL MPV 11.30 (7.40-12.00) fL Neut % (Auto) 58.8 (48.0-80.0) % Lymph % (Auto) 29.0 (16.0-40.0) % [place] % (Auto) 9.8 (0.0-15.0) % Eos % (Auto) 1.5 (0.0-7.0) % Baso % (Auto) 0.9 (0.0-1.5) % Neut # (Auto) 3.2 (1.4-5.7) K/uL Lymph # (Auto) 1.6 (0.6-2.4) K/uL [place] # (Auto) 0.5 (0.0-0.8) K/uL Eos # (Auto) 0.1 (0.0-0.7) K/uL Baso # (Auto) 0.1 (0.0-0.1) K/uL Nucleated RBC % 0.0 /100WBC Nucleated RBCs # 0 K/uL INR 1.00 Sodium 139 (136-148) mmol/L Potassium 4.1 (3.5-5.1) mmol/L Chloride 103 (98-107) mmol/L Carbon Dioxide 22.1 (21.0-32.0) mmol/L BUN 14 (7.0-18.0) mg/dL Creatinine 0.9 (0.8-1.3) mg/dL Est Cr Clr Drug Dosing 124.54 mL/min Estimated GFR (MDRD) > 60.0 ml/min Glucose 87 (74-106) mg/dL Hemoglobin A1c (4.5-6.2) % Calcium 10.2 H (8.5-10.1) mg/dL Total Bilirubin 0.4 (0.2-1.0) mg/dL AST 20 (15-37) IU/L ALT 53 (14-63) IU/L Alkaline Phosphatase 65 (46-116) U/L Total Protein 7.0 (6.4-8.2) g/dL Albumin 3.3 L (3.4-5.0) g/dL Globulin 3.7 (2.6-4.0) g/dL Albumin/Globulin Ratio 0.9 (0.9-1.6) 05/25/19 Range/Units 14:26 WBC (4.0-11.0) K/uL RBC (4.50-5.90) M/uL Hgb (13.0-17.0) g/dL Hct (38.0-50.0) % MCV (80.0-98.0) fL MCH (27.0-32.0) pg MCHC (31.0-37.0) g/dL RDW Std Deviation (28.0-62.0) fl RDW Coeff of [place]il[place] (11.0-15.0) % Plt Count (150-400) K/uL MPV (7.40-12.00) fL Neut % (Auto) (48.0-80.0) % Lymph % (Auto) (16.0-40.0) % [place] % (Auto) (0.0-15.0) % Eos % (Auto) (0.0-7.0) % Baso % (Auto) (0.0-1.5) % Neut # (Auto) (1.4-5.7) K/uL Lymph # (Auto) (0.6-2.4) K/uL [place] # (Auto) (0.0-0.8) K/uL Eos # (Auto) (0.0-0.7) K/uL Baso # (Auto) (0.0-0.1) K/uL Nucleated RBC % /100WBC Nucleated RBCs # K/uL INR Sodium (136-148) mmol/L Potassium (3.5-5.1) mmol/L Chloride (98-107) mmol/L Carbon Dioxide (21.0-32.0) mmol/L BUN (7.0-18.0) mg/dL Creatinine (0.8-1.3) mg/dL Est Cr Clr Drug Dosing mL/min Estimated GFR (MDRD) ml/min Glucose (74-106) mg/dL Hemoglobin A1c 5.5 (4.5-6.2) % Calcium (8.5-10.1) mg/dL Total Bilirubin (0.2-1.0) mg/dL AST (15-37) IU/L ALT (14-63) IU/L Alkaline Phosphatase (46-116) U/L Total Protein (6.4-8.2) g/dL Albumin (3.4-5.0) g/dL Globulin (2.6-4.0) g/dL Albumin/Globulin Ratio (0.9-1.6) Result Diagrams: 05/25/19 13:10 05/25/19 13:10 Werner Results Last 24 hrs: Microbiology 05/25/19 13:23 Anaerobic Blood Culture - Final Blood - Venous - Lab Draw 05/25/19 13:10 Anaerobic Blood Culture - Final Blood - Venous Orders Last 24hrs: Active Orders 24 hr Category Date Time Status Admission Status [Patient Status] [ADT] Stat ADT 05/25/19 14:07 Active Ambulate [RC] ASDIRECTED Care 05/25/19 14:54 Active Elevate Extremity [RC] BID Care 05/25/19 15:00 Active Intake and Output [RC] QSHIFT Care 05/25/19 14:55 Active May Shower [RC] ASDIRECTED Care 05/25/19 14:54 Active Oxygen Therapy [RC] PRN Care 05/25/19 14:54 Active RT Aerosol Therapy [RC] ASDIRECTED Care 05/25/19 14:59 Active Up to Chair [RC] ASDIRECTED Care 05/25/19 14:54 Active VTE/DVT Education [RC] PER UNIT ROUTINE Care 05/25/19 14:54 Active Vital Signs [RC] Q4H Care 05/25/19 14:54 Active Regular Diet [DIET] Diet 05/25/19 Lunch Active BASIC METABOLIC PANEL,BMP [CHEM] AM Lab 05/26/19 05:11 Ordered BASIC METABOLIC PANEL,BMP [CHEM] AM Lab 05/27/19 05:11 Ordered CBC WITH AUTO DIFF [HEME] AM Lab 05/26/19 05:11 Ordered CBC WITH AUTO DIFF [HEME] AM Lab 05/27/19 05:11 Ordered CULTURE BLOOD [BC] Stat Lab 05/25/19 13:10 Results CULTURE BLOOD [BC] Stat Lab 05/25/19 13:23 Results Acetaminophen [Tylenol] Med 05/25/19 14:54 Active 650 mg PO Q4H PRN Albuterol [Proventil HFA] Med 05/25/19 15:01 Active 0 gm INH Q4H PRN Albuterol [Proventil Neb Soln] Med 05/25/19 14:54 Active 2.5 mg NEB Q2H PRN Enoxaparin [Lovenox] Med 05/25/19 15:00 Active 40 mg SUBCUT Q24H Linezolid [Zyvox] 600 mg Med 05/25/19 15:00 Active Premix Bag 1 bag IV Q12H Losartan [Cozaar] Med 05/25/19 21:00 Active 25 mg PO BEDTIME Montelukast [Singulair] Med 05/25/19 21:00 Active 10 mg PO BEDTIME Ondansetron [Zofran] Med 05/25/19 14:54 Active 4 mg IVPUSH Q4H PRN Sodium Chloride 0.9% [Saline Flush] Med 05/25/19 14:54 Active 2.5 ml FLUSH ASDIRECTED PRN oxyCODONE Med 05/25/19 14:54 Active 5 mg PO Q4H PRN Blood Culture x2 Reflex Set [OM.PC] Stat Oth 05/25/19 12:53 Ordered Saline Lock Insert [OM.PC] Routine Oth 05/25/19 14:54 Ordered Resuscitation Status Routine Resus Stat 05/25/19 14:54 Ordered Medication Orders Acetaminophen (Tylenol) 650 mg PO Q4H PRN PRN Reason: Pain (Mild 1-3)/fever Albuterol (Proventil Neb Soln) 2.5 mg NEB Q2H PRN PRN Reason: Shortness Of Breath/wheezing Albuterol (Proventil Hfa) 0 gm INH Q4H PRN PRN Reason: Wheezing Enoxaparin Sodium (Lovenox) 40 mg SUBCUT Q24H IZA Last Admin: 05/25/19 15:52 Dose: 40 mg Linezolid 600 mg/ Premix 300 mls @ 300 mls/hr IV Q12H IZA Last Admin: 05/25/19 15:53 Dose: 300 mls/hr Losartan Potassium (Cozaar) 25 mg PO BEDTIME IZA Montelukast Sodium (Singulair) 10 mg PO BEDTIME IZA Ondansetron HCl (Zofran) 4 mg IVPUSH Q4H PRN PRN Reason: Nausea Oxycodone HCl (Oxycodone) 5 mg PO Q4H PRN PRN Reason: Pain (moderate 4-6) Sodium Chloride (Saline Flush) 2.5 ml FLUSH ASDIRECTED PRN PRN Reason: Keep Vein Open
[2019-05-25] MEDS ORDERED: Sodium Chloride 0.9% 2.5 ML Syringe FLUSH PRN (14:54)
[2019-05-25] MEDS ORDERED: Ondansetron 4 MG/2 ML SDV IVPUSH PRN (14:54)
[2019-05-25] MEDS ORDERED: oxyCODONE 5 MG Tab PO PRN (14:54)
[2019-05-25] MEDS ORDERED: Albuterol 0.083% 2.5 MG/3 ML Neb Soln NEB PRN (14:54)
[2019-05-25] MEDS ORDERED: Acetaminophen 325 MG Tab PO PRN (14:54)
[2019-05-25] MEDS ORDERED: Enoxaparin 40 MG/0.4 ML Syringe SUBCUT SCH (15:00)
[2019-05-25] MEDS ORDERED: Albuterol 6.7 GM Inhaler INH PRN (15:01)
[2019-05-25 15:05] LABS: BLOOD UREA NITROGEN,BUN 14 mg/dL (7.0-18.0); CARBON DIOXIDE,CO2 22.1 mmol/L (21.0-32.0); CHLORIDE,CL 103 mmol/L (98-107); GLUCOSE RANDOM 87 mg/dL (74-106); POTASSIUM,K 4.1 mmol/L (3.5-5.1); SODIUM,NA 139 mmol/L (136-148)
[2019-05-25 15:31] LABS: HEMOGLOBIN A1C 5.5 % (4.5-6.2)
[2019-05-25] MEDS: Linezolid 600 MG in Premix Bag 1 BAG IV SCH (15:53)
[2019-05-25] MEDS ORDERED: Losartan 50 MG Tab PO SCH (21:00)
[2019-05-25] MEDS ORDERED: Montelukast 10 MG Tab PO SCH (21:00)
[2019-05-26] MEDS: Linezolid 600 MG in Premix Bag 1 BAG IV SCH (03:22)
[2019-05-26 06:47] LABS: BLOOD UREA NITROGEN,BUN 13 mg/dL (7.0-18.0); CARBON DIOXIDE,CO2 26.7 mmol/L (21.0-32.0); CHLORIDE,CL 105 mmol/L (98-107); GLUCOSE RANDOM 100 mg/dL (74-106); POTASSIUM,K 4.2 mmol/L (3.5-5.1); SODIUM,NA 141 mmol/L (136-148)
--- NOTE | 2019-05-26 10:04 | PCM.DCSUM1 ---
<Mary Lou Ward M - Last Filed: 05/26/19 09:54> Discharge Summary - Hospital Course Brief History: This 34 year old male with pmh od obesity, HTN, EMILEE and asthma presented to the ED today with worsening right lower leg redness, pain and swelling. He reports on Saturday he noticed very small amount of redness to his R iglesias. He reports he has had an abrasion there for months, that is itchy and it bleeds if she scratches it. Denies trauma or spider bite. No purulent drainage has ever come out of abrasion. He then reports being feverish, with body aches and overall not feeling well over the weekend. He saw a Dr via Telemedicine through his insurance and was prescribed Bactrim. He has taken this x 3 doses and the redness continues to worsen. he denies ever since starting Bactrim and generally is feeling a little better, but leg continues to worsen. He reports hx of HTN and asthma. No DM or known CAD. He reports chewing tobacco, rare alcohol use and no recreational drug use. In the ED CBC WNL, no leukocytosis noted. Doppler of R leg negative for DVT. Tib/fib exray shows no signs of gas, noted subcutaneous edema to lower extremity. VS stable in ED, mild hypertension noted. BC obtained and are pending. He will be admitted observation for RLE cellulitis. Diagnosis: Stroke: No - Discharge Data Discharge Date: 05/26/19 Discharge Disposition: Home, Self-Care 01 Condition: Good - Discharge Diagnosis/Problem(s) (1) Cellulitis SNOMED Code(s): 765013714 ICD Code: L03.90 - CELLULITIS, UNSPECIFIED Status: Acute Qualifiers: Site of cellulitis: extremity Site of cellulitis of extremity: lower extremity Laterality: right Qualified Code(s): L03.115 - Cellulitis of right lower limb (2) HTN (hypertension) SNOMED Code(s): 09200449 ICD Code: I10 - ESSENTIAL (PRIMARY) HYPERTENSION Status: Chronic Qualifiers: Hypertension type: essential hypertension Qualified Code(s): I10 - Essential (primary) hypertension (3) Obesity SNOMED Code(s): 057827573, 657092288 ICD Code: E66.9 - OBESITY, UNSPECIFIED Status: Chronic (4) EMILEE on CPAP SNOMED Code(s): 91958684 ICD Code: G47.33 - OBSTRUCTIVE SLEEP APNEA (ADULT) (PEDIATRIC); Z99.89 - DEPENDENCE ON OTHER ENABLING MACHINES AND DEVICES Status: Chronic (5) Tobacco chew use SNOMED Code(s): 17688783 ICD Code: Z72.0 - TOBACCO USE Status: Chronic - Patient Instructions Diet: Heart Healthy Diet Activity: As Tolerated, Elevate Extremity (keep R leg elevated as much as possible until redness is gone), Rest and Relax Today Driving: May Drive Today Showering/Bathing: May Shower Notify Provider of: Fever, Increased Pain, Swelling and Redness, Drainage, Nausea and/or Vomiting - Discharge Plan *PRESCRIPTION DRUG MONITORING PROGRAM REVIEWED*: Not Applicable *COPY OF PRESCRIPTION DRUG MONITORING REPORT IN PATIENT IVAN: Not Applicable Prescriptions/Med Rec: Linezolid 600 mg PO BID 9 Days #18 tablet Home Medications: Home Meds Albuterol Sulfate [Proair Hfa] 1 puff INH ASDIRECTED PRN 08/19/17 [History] Montelukast Sodium [Singulair] 10 mg PO BEDTIME 08/19/17 [History] Losartan [Cozaar] 25 mg PO BEDTIME 05/25/19 [History] Acetaminophen [Tylenol] 650 mg PO Q4H PRN tablet 05/26/19 [Rx] Linezolid 600 mg PO BID 9 Days #18 tablet 05/26/19 [Rx] Oxygen Therapy Mode: Room Air Patient Handouts: Linezolid tablets, Cellulitis, Adult, [id number] Referrals: [facility] [Outside] Charlie Bush MD [Physician] - (follow up in 1 week) - Discharge Summary/Plan Comment DC Time >30 min.: No Discharge Summary/Plan Comment: Admitting Diagnoses: Failed outpatient management of RLE Cellulitis Discharge Diagnoses: RLE Cellulitis other PMH EMILEE with CPAP HTN Obesity. Charlie was admitted yesterday with complaints of worsening RLE erythema, pain and swelling. He reports systemic symptoms over the weekend with fever and poor appetite. He was prescribed Bactrim from telemedicine provider. He took a few doses but this did not help. He was seen in ED, no leukocytosis noted, BC negative x 1 day. He has been afebrile. He was treated with Linezolid IV. Today his leg is much improved, denies pain. Mild tenderness to his leg. Venous doppler ruled out DVT. He is very eager to go home today. He will be discharged home with Linezolid 600 mg BID for 9 more days. He is to follow up with PCP, Dr uBsh in 1 week. He was encouraged to return to ED or clinic if concerns should arise. - General Info Date of Service: 05/26/19 Admission Dx/Problem (Free Text: Admission Diagnosis/Problem Admission Diagnosis/Problem Cellulitis RLE Subjective Update: Feeling improved today. Right leg is no longer bright red, some redness withdrawing from drawn medellin on leg. Edema is improving. Denies chest pain or SOB. Asking for discharge home. Functional Status: Reports: Pain Controlled, Tolerating Diet, Ambulating - Review of Systems General: Reports: No Symptoms. Denies: Fever, Fatigue, Malaise Pulmonary: Reports: No Symptoms. Denies: Shortness of Breath Cardiovascular: Reports: No Symptoms. Denies: Chest Pain Gastrointestinal: Reports: No Symptoms. Denies: Abdominal Pain, Nausea Genitourinary: Reports: No Symptoms. Denies: Dysuria Musculoskeletal: Reports: Leg Pain (Mild tenderness to calf, but has improved since admission.) Skin: Reports: Other (redness to RLE, improved) Neurological: Reports: No Symptoms Psychiatric: Reports: No Symptoms - Patient Data Vitals - Most Recent: Last Vital Signs Temp 97.3 F 05/26/19 07:46 Pulse 67 05/26/19 07:46 Resp 18 05/26/19 07:46 BP 142/68 H 05/26/19 07:46 Pulse Ox 91 L 05/26/19 07:46 Weight - Most Recent: 186.483 kg I&O - Last 24 hours: Intake & Output 05/25/19 05/26/19 05/26/19 22:59 06:59 14:59 Intake Total 1240 Output Total 1425 Balance -185 Lab Results - Last 24 hrs: Laboratory Results - last 24 hr 05/25/19 05/25/19 05/25/19 Range/Units 13:10 13:10 14:26 WBC 5.42 (4.0-11.0) K/uL RBC 5.24 (4.50-5.90) M/uL Hgb 15.2 (13.0-17.0) g/dL Hct 46.0 (38.0-50.0) % MCV 87.8 (80.0-98.0) fL MCH 29.0 (27.0-32.0) pg MCHC 33.0 (31.0-37.0) g/dL RDW Std Deviation 42.8 (28.0-62.0) fl RDW Coeff of Edenilson 13 (11.0-15.0) % Plt Count 219 (150-400) K/uL MPV 11.30 (7.40-12.00) fL Neut % (Auto) 58.8 (48.0-80.0) % Lymph % (Auto) 29.0 (16.0-40.0) % [place] % (Auto) 9.8 (0.0-15.0) % Eos % (Auto) 1.5 (0.0-7.0) % Baso % (Auto) 0.9 (0.0-1.5) % Neut # (Auto) 3.2 (1.4-5.7) K/uL Lymph # (Auto) 1.6 (0.6-2.4) K/uL [place] # (Auto) 0.5 (0.0-0.8) K/uL Eos # (Auto) 0.1 (0.0-0.7) K/uL Baso # (Auto) 0.1 (0.0-0.1) K/uL Add Manual Diff Neutrophils % (Manual) (48.0-80.0) % Band Neutrophils % % Lymphocytes % (Manual) (16.0-40.0) % Monocytes % (Manual) (0.0-15.0) % Eosinophils % (Manual) (0.0-7.0) % Basophils % (Manual) (0.0-1.5) % Metamyelocytes % % Myelocytes % % Nucleated RBC % 0.0 /100WBC Absolute Seg Neuts (1.4-5.7) Band Neutrophils # Lymphocytes # (Manual) (0.6-2.4) Monocytes # (Manual) (0.0-0.8) Eosinophils # (Manual) (0.0-0.7) Basophils # (Manual) (0.0-0.1) Absolute Metamyelocyte Absolute Myelocytes Nucleated RBCs # 0 K/uL INR 1.00 Sodium 139 (136-148) mmol/L Potassium 4.1 (3.5-5.1) mmol/L Chloride 103 (98-107) mmol/L Carbon Dioxide 22.1 (21.0-32.0) mmol/L BUN 14 (7.0-18.0) mg/dL Creatinine 0.9 (0.8-1.3) mg/dL Est Cr Clr Drug Dosing 124.54 mL/min Estimated GFR (MDRD) > 60.0 ml/min Glucose 87 (74-106) mg/dL Hemoglobin A1c (4.5-6.2) % Calcium 10.2 H (8.5-10.1) mg/dL Total Bilirubin 0.4 (0.2-1.0) mg/dL AST 20 (15-37) IU/L ALT 53 (14-63) IU/L Alkaline Phosphatase 65 (46-116) U/L Total Protein 7.0 (6.4-8.2) g/dL Albumin 3.3 L (3.4-5.0) g/dL Globulin 3.7 (2.6-4.0) g/dL Albumin/Globulin Ratio 0.9 (0.9-1.6) 05/25/19 05/26/19 05/26/19 Range/Units 14:26 05:35 05:35 WBC 6.38 (4.0-11.0) K/uL RBC 5.03 (4.50-5.90) M/uL Hgb 14.8 (13.0-17.0) g/dL Hct 44.9 (38.0-50.0) % MCV 89.3 (80.0-98.0) fL MCH 29.4 (27.0-32.0) pg MCHC 33.0 (31.0-37.0) g/dL RDW Std Deviation 43.5 (28.0-62.0) fl RDW Coeff of Edenilson 13 (11.0-15.0) % Plt Count 224 (150-400) K/uL MPV 10.60 (7.40-12.00) fL Neut % (Auto) (48.0-80.0) % Lymph % (Auto) (16.0-40.0) % [place] % (Auto) (0.0-15.0) % Eos % (Auto) (0.0-7.0) % Baso % (Auto) (0.0-1.5) % Neut # (Auto) (1.4-5.7) K/uL Lymph # (Auto) (0.6-2.4) K/uL [place] # (Auto) (0.0-0.8) K/uL Eos # (Auto) (0.0-0.7) K/uL Baso # (Auto) (0.0-0.1) K/uL Add Manual Diff YES Neutrophils % (Manual) 56 (48.0-80.0) % Band Neutrophils % 2 % Lymphocytes % (Manual) 21 (16.0-40.0) % Monocytes % (Manual) 15 (0.0-15.0) % Eosinophils % (Manual) 2 (0.0-7.0) % Basophils % (Manual) 2 H (0.0-1.5) % Metamyelocytes % 1 % Myelocytes % 1 % Nucleated RBC % 0.0 /100WBC Absolute Seg Neuts 3.6 (1.4-5.7) Band Neutrophils # 0.1 Lymphocytes # (Manual) 1.3 (0.6-2.4) Monocytes # (Manual) 1.0 H (0.0-0.8) Eosinophils # (Manual) 0.1 (0.0-0.7) Basophils # (Manual) 0.1 (0.0-0.1) Absolute Metamyelocyte 0.1 Absolute Myelocytes 0.1 Nucleated RBCs # 0 K/uL INR Sodium 141 (136-148) mmol/L Potassium 4.2 (3.5-5.1) mmol/L Chloride 105 (98-107) mmol/L Carbon Dioxide 26.7 (21.0-32.0) mmol/L BUN 13 (7.0-18.0) mg/dL Creatinine 1.0 (0.8-1.3) mg/dL Est Cr Clr Drug Dosing 112.09 mL/min Estimated GFR (MDRD) > 60.0 ml/min Glucose 100 (74-106) mg/dL Hemoglobin A1c 5.5 (4.5-6.2) % Calcium 9.1 (8.5-10.1) mg/dL Total Bilirubin (0.2-1.0) mg/dL AST (15-37) IU/L ALT (14-63) IU/L Alkaline Phosphatase (46-116) U/L Total Protein (6.4-8.2) g/dL Albumin (3.4-5.0) g/dL Globulin (2.6-4.0) g/dL Albumin/Globulin Ratio (0.9-1.6) RACQUEL Results - Last 24 hrs: Microbiology 05/25/19 13:23 Anaerobic Blood Culture - Final Blood - Venous - Lab Draw 05/25/19 13:10 Anaerobic Blood Culture - Final Blood - Venous Med Orders - Current: Current Medications Acetaminophen (Tylenol) 650 mg PO Q4H PRN PRN Reason: Pain (Mild 1-3)/fever Albuterol (Proventil Neb Soln) 2.5 mg NEB Q2H PRN PRN Reason: Shortness Of Breath/wheezing Albuterol (Proventil Hfa) 0 gm INH Q4H PRN PRN Reason: Wheezing Enoxaparin Sodium (Lovenox) [address] [facility] Last Admin: 05/25/19 15:52 Dose: 40 mg Linezolid 600 mg/ Premix 300 mls @ 300 mls/hr IV Q12H [facility] Last Admin: 05/26/19 03:22 Dose: 300 mls/hr Losartan Potassium (Cozaar) [address] [facility] Last Admin: 05/25/19 20:05 Dose: 25 mg Montelukast Sodium (Singulair) [address] [facility] Last Admin: 05/25/19 20:05 Dose: 10 mg Ondansetron HCl (Zofran) 4 mg IVPUSH Q4H PRN PRN Reason: Nausea Oxycodone HCl (Oxycodone) 5 mg PO Q4H PRN PRN Reason: Pain (moderate 4-6) Sodium Chloride (Saline Flush) 2.5 ml FLUSH ASDIRECTED PRN PRN Reason: Keep Vein Open - Exam General: Reports: Alert, Oriented, Cooperative, No Acute Distress Lungs: Reports: Clear to Auscultation, Normal Respiratory Effort Cardiovascular: Reports: Regular Rate, Regular Rhythm GI/Abdominal Exam: Normal Bowel Sounds, Soft, Non-Tender, Other (obese abdomen) Extremities: Normal Inspection, Normal Range of Motion, Pedal Edema (+1 to RLE. Tenderness to RLE with palapation of eryathematous region) Skin: Reports: Warm, Dry Wound/Incisions: Reports: Healing Well, No Drainage, Erythema Improving Psy/Mental Status: Reports: Alert, Normal Affect, Normal Mood <TaylorJorge - Last Filed: 05/26/19 13:01> Discharge Summary - Hospital Course Free Text/Narrative:: I have seen and examined the patient independently of Mary Lou Ward CNP. I have reviewed and agree with the plan of care as outlined for this patient by her. I have discussed the case with her. Please see orders. - Referral to Home Health Primary Care Physician: PCP Unknown - Patient Data Vitals - Most Recent: Last Vital Signs Temp 36.3 C 05/26/19 07:46 Pulse 67 05/26/19 07:46 Resp 18 05/26/19 07:46 BP 142/68 H 05/26/19 07:46 Pulse Ox 91 L 05/26/19 07:46 I&O - Last 24 hours: Intake & Output 05/25/19 05/26/19 05/26/19 22:59 06:59 14:59 Intake Total 1240 240 Output Total 1425 Balance -185 240 Lab Results - Last 24 hrs: Laboratory Results - last 24 hr 05/25/19 05/25/19 05/25/19 Range/Units 13:10 13:10 14:26 WBC 5.42 (4.0-11.0) K/uL RBC 5.24 (4.50-5.90) M/uL Hgb 15.2 (13.0-17.0) g/dL Hct 46.0 (38.0-50.0) % MCV 87.8 (80.0-98.0) fL MCH 29.0 (27.0-32.0) pg MCHC 33.0 (31.0-37.0) g/dL RDW Std Deviation 42.8 (28.0-62.0) fl RDW Coeff of Edenilson 13 (11.0-15.0) % Plt Count 219 (150-400) K/uL MPV 11.30 (7.40-12.00) fL Neut % (Auto) 58.8 (48.0-80.0) % Lymph % (Auto) 29.0 (16.0-40.0) % [place] % (Auto) 9.8 (0.0-15.0) % Eos % (Auto) 1.5 (0.0-7.0) % Baso % (Auto) 0.9 (0.0-1.5) % Neut # (Auto) 3.2 (1.4-5.7) K/uL Lymph # (Auto) 1.6 (0.6-2.4) K/uL [place] # (Auto) 0.5 (0.0-0.8) K/uL Eos # (Auto) 0.1 (0.0-0.7) K/uL Baso # (Auto) 0.1 (0.0-0.1) K/uL Add Manual Diff Neutrophils % (Manual) (48.0-80.0) % Band Neutrophils % % Lymphocytes % (Manual) (16.0-40.0) % Monocytes % (Manual) (0.0-15.0) % Eosinophils % (Manual) (0.0-7.0) % Basophils % (Manual) (0.0-1.5) % Metamyelocytes % % Myelocytes % % Nucleated RBC % 0.0 /100WBC Absolute Seg Neuts (1.4-5.7) Band Neutrophils # Lymphocytes # (Manual) (0.6-2.4) Monocytes # (Manual) (0.0-0.8) Eosinophils # (Manual) (0.0-0.7) Basophils # (Manual) (0.0-0.1) Absolute Metamyelocyte Absolute Myelocytes Nucleated RBCs # 0 K/uL INR 1.00 Sodium 139 (136-148) mmol/L Potassium 4.1 (3.5-5.1) mmol/L Chloride 103 (98-107) mmol/L Carbon Dioxide 22.1 (21.0-32.0) mmol/L BUN 14 (7.0-18.0) mg/dL Creatinine 0.9 (0.8-1.3) mg/dL Est Cr Clr Drug Dosing 124.54 mL/min Estimated GFR (MDRD) > 60.0 ml/min Glucose 87 (74-106) mg/dL Hemoglobin A1c (4.5-6.2) % Calcium 10.2 H (8.5-10.1) mg/dL Total Bilirubin 0.4 (0.2-1.0) mg/dL AST 20 (15-37) IU/L ALT 53 (14-63) IU/L Alkaline Phosphatase 65 (46-116) U/L Total Protein 7.0 (6.4-8.2) g/dL Albumin 3.3 L (3.4-5.0) g/dL Globulin 3.7 (2.6-4.0) g/dL Albumin/Globulin Ratio 0.9 (0.9-1.6) 05/25/19 05/26/19 05/26/19 Range/Units 14:26 05:35 05:35 WBC 6.38 (4.0-11.0) K/uL RBC 5.03 (4.50-5.90) M/uL Hgb 14.8 (13.0-17.0) g/dL Hct 44.9 (38.0-50.0) % MCV 89.3 (80.0-98.0) fL MCH 29.4 (27.0-32.0) pg MCHC 33.0 (31.0-37.0) g/dL RDW Std Deviation 43.5 (28.0-62.0) fl RDW Coeff of Edenilson 13 (11.0-15.0) % Plt Count 224 (150-400) K/uL MPV 10.60 (7.40-12.00) fL Neut % (Auto) (48.0-80.0) % Lymph % (Auto) (16.0-40.0) % [place] % (Auto) (0.0-15.0) % Eos % (Auto) (0.0-7.0) % Baso % (Auto) (0.0-1.5) % Neut # (Auto) (1.4-5.7) K/uL Lymph # (Auto) (0.6-2.4) K/uL [place] # (Auto) (0.0-0.8) K/uL Eos # (Auto) (0.0-0.7) K/uL Baso # (Auto) (0.0-0.1) K/uL Add Manual Diff YES Neutrophils % (Manual) 56 (48.0-80.0) % Band Neutrophils % 2 % Lymphocytes % (Manual) 21 (16.0-40.0) % Monocytes % (Manual) 15 (0.0-15.0) % Eosinophils % (Manual) 2 (0.0-7.0) % Basophils % (Manual) 2 H (0.0-1.5) % Metamyelocytes % 1 % Myelocytes % 1 % Nucleated RBC % 0.0 /100WBC Absolute Seg Neuts 3.6 (1.4-5.7) Band Neutrophils # 0.1 Lymphocytes # (Manual) 1.3 (0.6-2.4) Monocytes # (Manual) 1.0 H (0.0-0.8) Eosinophils # (Manual) 0.1 (0.0-0.7) Basophils # (Manual) 0.1 (0.0-0.1) Absolute Metamyelocyte 0.1 Absolute Myelocytes 0.1 Nucleated RBCs # 0 K/uL INR Sodium 141 (136-148) mmol/L Potassium 4.2 (3.5-5.1) mmol/L Chloride 105 (98-107) mmol/L Carbon Dioxide 26.7 (21.0-32.0) mmol/L BUN 13 (7.0-18.0) mg/dL Creatinine 1.0 (0.8-1.3) mg/dL Est Cr Clr Drug Dosing 112.09 mL/min Estimated GFR (MDRD) > 60.0 ml/min Glucose 100 (74-106) mg/dL Hemoglobin A1c 5.5 (4.5-6.2) % Calcium 9.1 (8.5-10.1) mg/dL Total Bilirubin (0.2-1.0) mg/dL AST (15-37) IU/L ALT (14-63) IU/L Alkaline Phosphatase (46-116) U/L Total Protein (6.4-8.2) g/dL Albumin (3.4-5.0) g/dL Globulin (2.6-4.0) g/dL Albumin/Globulin Ratio (0.9-1.6) RACQUEL Results - Last 24 hrs: Microbiology 05/25/19 13:23 Anaerobic Blood Culture - Final Blood - Venous - Lab Draw 05/25/19 13:10 Anaerobic Blood Culture - Final Blood - Venous Med Orders - Current: Current Medications Discontinued Medications Acetaminophen (Tylenol) 650 mg PO Q4H PRN PRN Reason: Pain (Mild 1-3)/fever Albuterol (Proventil Neb Soln) 2.5 mg NEB Q2H PRN PRN Reason: Shortness Of Breath/wheezing Albuterol (Proventil Hfa) 0 gm INH Q4H PRN PRN Reason: Wheezing Enoxaparin Sodium (Lovenox) [address] [facility] Last Admin: 05/25/19 15:52 Dose: 40 mg Linezolid 600 mg/ Premix 300 mls @ 300 mls/hr IV Q12H [facility] Last Admin: 05/26/19 03:22 Dose: 300 mls/hr Losartan Potassium (Cozaar) [address] [facility] Last Admin: 05/25/19 20:05 Dose: 25 mg Montelukast Sodium (Singulair) [address] [facility] Last Admin: 05/25/19 20:05 Dose: 10 mg Ondansetron HCl (Zofran) 4 mg IVPUSH Q4H PRN PRN Reason: Nausea Oxycodone HCl (Oxycodone) 5 mg PO Q4H PRN PRN Reason: Pain (moderate 4-6) Sodium Chloride (Saline Flush) 2.5 ml FLUSH ASDIRECTED PRN PRN Reason: Keep Vein Open
== END 2019-05-26 11:00 | disposition home or self-care (01) ==
LOC: MW.ED 12:35 → MW.MS 14:07
PROVIDERS: ADMIT Internal Medicine; ATTEND Internal Medicine
DX: L03.115 Cellulitis of right lower limb (principal); I10 Essential (primary) hypertension; J45.909 Unspecified asthma, uncomplicated; F17.220 Nicotine dependence, chewing tobacco, uncomplicated; E66.9 Obesity, unspecified; G47.33 Obstructive sleep apnea (adult) (pediatric); Z99.89 Dependence on other enabling machines and devices; Z91.09 Other allergy status, other than to drugs and biological substances; Z79.899 Other long term (current) drug therapy; Z68.43 Body mass index [BMI] 50.0-59.9, adult
CPT/HCPCS: 36415; 73590; 80048; 80053; 83036; 85025; 85610; 87040; 93971; 96365; 96372; 96376; 99285; A9270; G0378; J1650; J2020; 99284